=== PATIENT | female | born 1995 | race Two or more races ===

== ENCOUNTER 2024-08-03 02:19 | Inpatient (IN) | payer MEDICAID, OTHER ==
[~2024-08-03] VITALS: Ht 162.6 cm; Wt 70.5 kg
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
[2024-08-03] MEDS: SODIUM CHLORIDE 0.9% 1,000 ML IV ONE (02:53)
[2024-08-03] MEDS: ACETAMINOPHEN IV 1000 MG/100ML (10MG/ML) IV STA (02:53)
[2024-08-03] MEDS: ONDANSETRON HCL 4 MG/2 ML VIAL IV ONE (02:53)
[2024-08-03 02:59] VITALS: PULSE 98; RESP 22; O2SAT 97
[2024-08-03 03:05] LABS: Basophils # (auto) 0 10 ^3/uL (0-0.2); Eosinophils # (auto) 0 10 ^3/uL (0-0.8); Hemoglobin 14.1 g/dL (12.2-16.2); Monocytes # (auto) 0.8 10 ^3/uL (0-1.3); Nucleated Red Blood Cells % 0.1 %; White Blood Cell 10.7 10^3/uL (4.4-10.8)
[2024-08-03 03:06] LABS: Basophils % (auto) 0.4 % (0.0-2.0); Eosinophils % (auto) 0.3 % (0.0-7.0); Hematocrit 43.8 % (36.0-46.0); Lymphocytes # (auto) 2.7 10 ^3/uL (0.4-5.4); Lymphocytes % (auto) 24.9 % (10.0-50.0); Mean Corpuscular Hemoglobin 26.8 pg (28.0-32.0); Mean Corpuscular Hgb Conc. 32.2 g/dL (32.0-36.0); Mean Corpuscular Volume 83.3 fL (80.0-100.0); Neutrophils # (auto) 7.2 10 ^3/uL (1.6-8.6); Neutrophils % (auto) 67.4 % (37.0-80.0); Platelet Count (auto) 242 10^3/uL (140-450); Red Blood Cells 5.26 10^6/uL (4.0-5.20); Red Cell Distribution Width 14.2 % (11.8-14.3)
[2024-08-03] MEDS: IOHEXOL 300 MG/ML 100ML BOTTLE IJ ONE (03:19)
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
[2024-08-03 03:26] LABS: Chloride 107 mmol/L (98-107); Sodium 141 mmol/L (136-145)
[2024-08-03 03:27] LABS: Anion Gap 15 (5-15); Calcium 9.8 mg/dL (8.7-10.4)
[2024-08-03 03:32] LABS: BUN/Creatinine Ratio 12.1 (10.0-20.0); Blood Urea Nitrogen 12 mg/dL (9-23)
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
[2024-08-03 04:26] LABS: Carbon Dioxide 19 mmol/L (20-31); Glucose 121 mg/dL (74-106); Potassium 3.4 mmol/L (3.5-5.1)
[2024-08-03] MEDS ORDERED: DOCUSATE SOD 100 MG CAP PO PRN (06:30)
[2024-08-03] MEDS ORDERED: ONDANSETRON HCL 4 MG/2 ML VIAL IV PRN (06:30)
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
[2024-08-03] MEDS: SOD CHL 0.9%/ KCL 20MEQ 1,000 ML IV ONE (06:58)
[2024-08-03 07:06] LABS: Urine Bacteria None Seen /hpf (None Seen)
[2024-08-03 07:17] LABS: Urine Blood 1+ /uL (Negative); Urine Clarity Clear (Clear); Urine Color Light-Yellow (Yellow); Urine Protein, UAD Negative (Negative); Urine Specific Gravity 1.035 (1.001-1.035); Urine Squamous Epithelial Cell FEW /hpf (<5); Urine Urobilinogen Normal (Negative); Urine WBC 1 /HPF (0-5); Urine pH 5.5 (5.0-9.0)
[2024-08-03 07:32] LABS: Cannabinoid Screen, Urine Pos (NEGATIVE)
[2024-08-03 07:33] LABS: Amphetamine Screen, Urine Neg (NEGATIVE); Barbiturate Scree,Urine Neg (NEGATIVE); Benzodiazephine Screen, Urine Neg (NEGATIVE); Cocaine Screen, Urine Pos (NEGATIVE); Opiate Scree,Urine Neg (NEGATIVE); Phencyclidine Screen, Urine Neg (NEGATIVE)
[2024-08-03] MEDS: IBUPROFEN 600 MG TAB PO PRN (07:44)
[2024-08-03 08:00] VITALS: PULSE 86; RESP 24; O2SAT 100
[2024-08-03] MEDS: traMADol HCL 50 MG TAB PO PRN (16:22)
[2024-08-03 19:28] VITALS: PULSE 87; RESP 21; O2SAT 97
--- NOTE | 2024-08-04 03:43 | ECG ---
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
[2024-08-04 08:10] VITALS: PULSE 87; RESP 23; O2SAT 99
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
[2024-08-04] MEDS: amLODIPine BESYLATE 5 MG TAB PO ONE (11:45)
[2024-08-04] MEDS ORDERED: HYDR-4902 PO (12:03)
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
[2024-08-04 12:41] VITALS: BP 139/87; TEMP 36.8
[2024-08-04 13:00] VITALS: BP 127/82; PULSE 76; RESP 15; O2SAT 98
== END 2024-08-04 14:05 | disposition home or self-care (01) | DRG 135 ==
LOC: ER 02:19 → OVERFLOW 06:19
PROVIDERS: ADMIT Nurse Practitioner Acute Care; ATTEND Nurse Practitioner Acute Care
DX: S27.0XXA Traumatic pneumothorax, initial encounter (principal); S22.41XA Multiple fractures of ribs, right side, initial encounter for closed fracture; E87.6 Hypokalemia; V03.00XA Pedestrian on foot injured in collision with car, pick-up truck or van in nontraffic accident, initial encounter; V89.2XXA Person injured in unspecified motor-vehicle accident, traffic, initial encounter; Y92.89 Other specified places as the place of occurrence of the external cause; Y99.8 Other external cause status; Z88.0 Allergy status to penicillin
CPT/HCPCS: 36415; 70450; 71045; 71250; 71260; 73060; 73590; 73610; 74177; 80048; 80307; 81001; 84484; 85025; 93005; 96361; 96374; 96375; 99291; G0378; J0131; J2405

== ENCOUNTER 2024-12-29 00:35 | Emergency (ER) | payer SELFPAY ==
[~2024-12-29] VITALS: Ht 152.4 cm; Wt 75.0 kg
[~2024-12-29 00:35] MED LIST: HYDR-4902 PO
--- NOTE | 2024-12-29 01:22 | ED.PDOC ---
Eye-HPI HPI Comments PT COMING FROM HOME AFTER 1 WEEK OF PAIN TO HER THROAT THAT HAS NOT GONE DOWN SINCE SUNDAY LAST WEEK. PT BREATHING EVEN AND UNLABORED WITH NO SIGNS OF CARDIAC OR RESPIRATORY DISTRESS NOTED AT THIS TIME. DENIES PMH V/D/N Time Seen by MD: 01:18 Reviewed Notes: Nurses Notes, Medications, Allergies Allergies: Coded Allergies: Amoxicillin (Verified Allergy, Unknown, 08/03/24) Home Meds Active Scripts Ibuprofen (Ibuprofen) 800 Mg Tab, 800 MG PO Q8HP PRN for 5 Days, #15 TAB Prov:HAYDER BEARD MATERIAL DAMAGE ADJUSTER 12/29/24 Cefdinir (Cefdinir) 300 Mg Cap, 1 CAP PO BID for 7 Days, #14 CAP Prov:HAYDER BEARD MATERIAL DAMAGE ADJUSTER 12/29/24 Hydrocodone-Acetaminophen (Hydrocodone Bitartrate/AC 5-325 mg) 1 Tab Tab, 1 TAB PO Q6HP PRN for 7 Days, #20 TAB Prov:CHAKA ZAVALA MACHINE CLOTHING MAN 08/04/24 Information Source: Patient Past Medical History PAST MEDICAL HISTORY: Denies Surgical History: Denies all surgeries SHOWER MAID History: Denies all SHOWER MAID Hx Family History Family History: Reviewed,noncontributory to illness Social History Smoker: Non-Smoker Alcohol: Heavy Drugs: Cocaine Lives In: Home Constitutional: denies: chills, diaphoresis, fatigue, fever, malaise, sweats, weakness, others EENTM: reports: throat pain, throat swelling, voice changes; denies: blurred vision, double vision, ear bleeding, ear discharge, ear drainage, ear pain, ear ringing, eye pain, eye redness, hearing loss, mouth pain, mouth swelling, nasal discharge, nose bleeding, nose congestion, nose pain, photophobia, tearing, others Respiratory: denies: cough, hemoptysis, orthopnea, SOB at rest, shortness of breath, SOB with excertion, stridor, wheezing, others Cardiovascular: denies: chest pain, dizzy spells, diaphoresis, Dyspnea on exertion, edema, irregular heart beat, left arm pain, lightheadedness, palpitations, PND, syncope, others Gastrointestinal: denies: abdomen distended, abdominal pain, blood streaked bowels, constipated, diarrhea, dysphagia, difficulty swallowing, hematemesis, melena, nausea, poor appetite, poor fluid intake, rectal bleeding, rectal pain, vomiting, others Genitourinary: denies: abnormal vagina bleeding, burning, dyspareunia, dysuria, flank pain, frequency, hematuria, incontinence, pain, , vagina discharge, urgency, others Neurological: denies: dizziness, fainting, headache, left sided numbness, left sided weakness, numbness, paresthesia, pre-existing deficit, right sided numbness, right sided weakness, seizure, speech problems, tingling, tremors, weakness, others Musculoskeletal: denies: back pain, gout, joint pain, joint swelling, muscle pain, muscle stiffness, neck pain, others Integumetry: denies: bruises, change in color, change in hair/nails, dryness, laceration, lesions, lumps, rash, wounds, others Allergic/Immunocompromised: denies: Difficulty Healing, Frequent Infections, Hives, Itching, others Hematologic/Lymphatic: denies: anemia, blood clots, easy bleeding, easy bruising, swollen glands, others Endocrine: denies: excessive hunger, excessive sweating, excessive thirst, excessive urination, flushing, intolerance to cold, intolerance to heat, unexplained weight gain, unexplained weight loss, others Psychiatric: denies: anxiety, bipolar disorder, depression, hopeless, panic disorder, schizophrenia, sleepless, suicidal, others Physical Exam General Appearance: No Apparent Distress, Normal HEENT: Pharyngeal Erythema, TMs Normal, Tonsillar Exudate (Tonsils grade 4) Neck: Full Range of Motion Respiratory: Lungs Clear, No Respiratory Distress, Normal Breath Sounds Cardiovascular: No Murmur, Normal Peripheral Pulses, Regular Rate/Rhythm Breast Exam: Deferred Gastrointestinal: No Organomegaly, Non Tender, Soft Genitalia: Deferred Pelvic: Deferred Rectal: Deferred Extremities: Normal range of motion Musculoskeletal : Apperance: Normal Neurologic: Alert, No Motor Deficits, Normal Affect, Normal Mood, No Sensory Deficits Cerebellar Function: Normal Reflexes: NOT DONE Skin: Dry, Normal Color, Warm Lymphatic: No Adenopathy Was a procedure done? Was a procedure done?: No EENT DIFF Eye: N/A Sore Throat: Homer's Angina, Peritonsillar Abscess, Peritonsillar Cellulitis, Streptococcal, Viral Pharyngitis X-Ray, Labs, Meds, VS Vital Signs Date Time Temp Pulse Resp B/P (MAP) Pulse Ox O2 Delivery O2 Flow Rate FiO2 12/29/24 04:29 99.4 99.4 12/29/24 04:09 100.0 12/29/24 04:00 100.0 85 18 144/94 (111) 98 100.0 12/29/24 03:56 Room Air* 0 21 12/29/24 03:14 99.2 82 20 128/83 (98) 96 99.2 12/29/24 01:31 99.3 89 14 140/99 (113) 97 99.3 Lab Test 12/29/24 01:53 Range/Units White Blood Count 13.2 H 4.4-10.8 10^3/uL Red Blood Count 5.23 H 4.0-5.20 10^6/uL Hemoglobin 14.3 12.2-16.2 g/dL Hematocrit 42.3 36.0-46.0 % Mean Corpuscular Volume 80.9 80.0-100.0 fL Mean Corpuscular Hemoglobin 27.3 L 28.0-32.0 pg Mean Corpuscular Hemoglobin Concent 33.7 32.0-36.0 g/dL Red Cell Distribution Width 13.6 11.8-14.3 % Platelet Count 257 140-450 10^3/uL Mean Platelet Volume 9.1 6.9-10.8 fL Neutrophils (%) (Auto) 75.7 37.0-80.0 % Lymphocytes (%) (Auto) 14.4 10.0-50.0 % Monocytes (%) (Auto) 8.3 0.0-12.0 % Eosinophils (%) (Auto) 1.2 0.0-7.0 % Basophils (%) (Auto) 0.4 0.0-2.0 % Neutrophils # (Auto) 10.0 H 1.6-8.6 10 ^3/uL Lymphocytes # (Auto) 1.9 0.4-5.4 10 ^3/uL Monocytes # (Auto) 1.1 0-1.3 10 ^3/uL Eosinophils # (Auto) 0.2 0-0.8 10 ^3/uL Basophils # (Auto) 0.1 0-0.2 10 ^3/uL Nucleated Red Blood Cells 0.0 % Sodium Level 140 136-145 mmol/L Potassium Level 3.5 3.5-5.1 mmol/L Chloride Level 106 98-107 mmol/L Carbon Dioxide Level 23 20-31 mmol/L Anion Gap 11 5-15 Blood Urea Nitrogen 9 9-23 mg/dL Creatinine 1.04 H 0.550-1.02 mg/dL Glomerular Filtration Rate Calc 75 >90 mL/min BUN/Creatinine Ratio 8.7 L 10.0-20.0 Serum Glucose 92 74-106 mg/dL Calcium Level 9.6 8.7-10.4 mg/dL Total Bilirubin 0.4 0.2-1.0 mg/dL Aspartate Amino Transferase (AST) 14 13-40 U/L Alanine Aminotransferase (ALT) 9 7-40 U/L Alkaline Phosphatase 70 46-116 U/L Total Protein 7.6 5.7-8.2 g/dL Albumin 4.7 3.2-4.8 g/dL Current Medications Medications (Trade) Dose Ordered Sig/Hans Route Start Time Stop Time Status Last Admin Ceftriaxone Sodium 50 ml @ 100 mls/hr ONCE ONCE IV 12/29/24 01:30 12/29/24 01:59 DC 12/29/24 03:50 Ketorolac Tromethamine (Toradol Injection) 30 mg ONCE ONCE IV 12/29/24 01:30 12/29/24 01:31 DC 12/29/24 03:45 Dexamethasone Sodium Phosphate (Decadron Injection) 10 mg ONCE ONCE IV 12/29/24 01:30 12/29/24 01:31 DC 12/29/24 03:44 Acetaminophen (Tylenol Tablet) 650 mg ONCE ONCE PO 12/29/24 04:15 12/29/24 04:16 DC 12/29/24 04:09 X-Ray, Labs, Meds, VS Comment IMPRESSION: 1. Ill-defined increased soft tissue density of slightly diminished attenuation within the right peritonsillar region exhibiting mild mass effect on the corresponding airway. Lack of intravenous contrast limits evaluation. This may represent an early organizing phlegmonous collection versus abscess. 2. Bilateral cervical lymphadenopathy. CT shows early organizing phlegmonous collection versus abscess. Patient given Rocephin 1 g IM, Toradol 30 mg IV and Decadron 10 mg IV.. Patient reports improvement in symptoms requesting to be discharge at this time. Script trial of cefdinir and ibuprofen advised to take medications as prescribed side effects discussed. Follow up with her PCP in two days or sooner discussed ER return precautions patient indicated understanding and agrees with discharge plan of care. Time of 1ST Reevaluation: 01:22 Reevaluation 1ST: Unchanged Time of 2ND Reevaluation: 03:40 Reevaluation 2ND: Unchanged Time of 3RD Reevaluation: 04:29 Reevaluation 3RD: Improved Patient Education/Counseling: Diagnosis, Treatment, Prognosis, Need For Follow Up Family Education/Counseling: No Family Present SEPSIS Sepsis Screen Physician Orders Neck Without Contrast (12/29/24 01:22) Vital Signs Date Time Temp Pulse Resp B/P (MAP) Pulse Ox O2 Delivery O2 Flow Rate FiO2 12/29/24 04:29 99.4 99.4 12/29/24 04:09 100.0 12/29/24 04:00 100.0 85 18 144/94 (111) 98 100.0 12/29/24 03:56 Room Air* 0 21 12/29/24 03:14 99.2 82 20 128/83 (98) 96 99.2 12/29/24 01:31 99.3 89 14 140/99 (113) 97 99.3 Laboratory Tests Test 12/29/24 01:53 White Blood Count 13.2 10^3/uL (4.4-10.8) H Medications Medications Dose Ordered Sig/Hans Route Start Time Stop Time Status Last Admin Dose Admin Acetaminophen 650 mg ONCE ONCE PO 12/29/24 04:15 12/29/24 04:16 DC 12/29/24 04:09 Ceftriaxone Sodium 50 ml @ 100 mls/hr ONCE ONCE IV 12/29/24 01:30 12/29/24 01:59 DC 12/29/24 03:50 Dexamethasone Sodium Phosphate 10 mg ONCE ONCE IV 12/29/24 01:30 12/29/24 01:31 DC 12/29/24 03:44 Ketorolac Tromethamine 30 mg ONCE ONCE IV 12/29/24 01:30 12/29/24 01:31 DC 12/29/24 03:45 Departure 1 Departure Time of Disposition: 04:28 Impression: Primary Impression: Acute tonsillitis Qualified Codes: J03.90 - Acute tonsillitis, unspecified Disposition: 01 HOME / SELF CARE / HOMELESS Condition: Stable e-Prescriptions Ibuprofen (Ibuprofen) 800 Mg Tab 800 MG PO Q8HP PRN for 5 Days, #15 TAB Prov: HAYDER BEARD 12/29/24 Cefdinir (Cefdinir) 300 Mg Cap 1 CAP PO BID for 7 Days, #14 CAP Prov: HAYDER BEARD 12/29/24 Discharged With: Self Critical Care Note Critical Care Time?: No Stability Stability form required: HAYDER Monroe Dec 29, 2024 01:22
[2024-12-29 02:05] LABS: Hematocrit 42.3 % (36.0-46.0); Hemoglobin 14.3 g/dL (12.2-16.2); Mean Corpuscular Hemoglobin 27.3 pg (28.0-32.0); Mean Corpuscular Volume 80.9 fL (80.0-100.0); Nucleated Red Blood Cells % 0.0 %
--- NOTE | 2024-12-29 02:06 | DVH ---
EXAM: CT NECK WITHOUT CONTRAST INDICATION: Rule out right side peritonsillar abscess Exam Date: 12/29/2024 01:26 AM COMPARISON: None TECHNIQUE: CT of the neck without intravenous contrast. RADIATION DOSE: CTDIvol: 20.0 mGy, DLP: 677.02 mGy*cm FINDINGS: 2.7 x 2.1 cm ill-defined slightly hypoattenuating soft tissue prominence within the right peritonsill ar region exhibiting mild mass effect on the corresponding airway. There is otherwise no evidence of cervical mass lesion, pathologically enlarged lymph nodes or defini te fluid collection. Multiple prominent mildly enlarged bilateral cervical level II and III lymph nodes. The fat planes of the neck appear intact. The airway and larynx are unremarkable. The parotid, submandibular and thyroid glands are unremarkable. The vascular structures of the neck appear patent. The visualized lung apices are clear. The limited visualized portions of the brain are unremarkable. The osseous structures are unremarkable. IMPRESSION: 1. Ill-defined increased soft tissue density of slightly diminished attenuation within the right opal tonsillar region exhibiting mild mass effect on the corresponding airway. Lack of intravenous contras t limits evaluation. This may represent an early organizing phlegmonous collection versus abscess. 2. Bilateral cervical lymphadenopathy.
[2024-12-29 02:25] LABS: Albumin 4.7 g/dL (3.2-4.8); Alkaline Phosphatase 70 U/L (46-116); Anion Gap 11 (5-15); BUN/Creatinine Ratio 8.7 (10.0-20.0); Bilirubin, Total 0.4 mg/dL (0.2-1.0); Calcium 9.6 mg/dL (8.7-10.4); Carbon Dioxide 23 mmol/L (20-31); Chloride 106 mmol/L (98-107); Glucose 92 mg/dL (74-106); Potassium 3.5 mmol/L (3.5-5.1); Sodium 140 mmol/L (136-145); Total Protein 7.6 g/dL (5.7-8.2)
[2024-12-29 02:26] LABS: Alanine Aminotransferase 9 U/L (7-40); Blood Urea Nitrogen 9 mg/dL (9-23)
[2024-12-29] MEDS: KETOROLAC TROMETH 30 MG/ML 1ML VIAL IV ONE (03:45)
[2024-12-29] MEDS: cefTRIAXone 1GM/50ML D5W 50 ML IV ONE (03:50)
[2024-12-29 04:00] VITALS: BP 144/94; PULSE 85; RESP 18; O2SAT 98
[2024-12-29] MEDS: ACETAMINOPHEN 325 MG TAB PO ONE (04:09)
[2024-12-29 04:29] VITALS: TEMP 99.4
[2024-12-29] MEDS ORDERED: IBUP-1456 PO (04:29)
[2024-12-29] MEDS ORDERED: CEFD300C2 PO (04:29)
== END 2024-12-29 04:36 | disposition home or self-care (01) ==
LOC: ER 00:35
DX: J03.90 Acute tonsillitis, unspecified (principal); F14.90 Cocaine use, unspecified, uncomplicated; F10.10 Alcohol abuse, uncomplicated; Z88.0 Allergy status to penicillin; Z79.899 Other long term (current) drug therapy; Y90.9 Presence of alcohol in blood, level not specified
CPT/HCPCS: 36415; 70490; 80053; 85025; 96365; 96375; 99285; J0696; J1100; J1885

== ENCOUNTER 2025-02-05 19:22 | Emergency (ER) | payer SELFPAY ==
[~2025-02-05] VITALS: Ht 162.6 cm; Wt 78.1 kg
[2025-02-05 19:25] VITALS: BP 143/91; PULSE 71; RESP 18; TEMP 97.2; O2SAT 97
[2025-02-05] MEDS ORDERED: ONDANSETRON ODT 4 MG TAB PO ONE (19:45)
[2025-02-05] MEDS ORDERED: MECLIZINE HCL 25 MG TAB PO ONE (19:45)
[2025-02-05 20:07] LABS: Hematocrit 40.8 % (36.0-46.0); Hemoglobin 14.0 g/dL (12.2-16.2); Mean Corpuscular Hemoglobin 27.7 pg (28.0-32.0); Mean Corpuscular Volume 80.8 fL (80.0-100.0); Nucleated Red Blood Cells % 0.0 %
--- NOTE | 2025-02-05 20:16 | ED.PDOC ---
History of Present Illness HPI Comments Why 29-year-old female came to ER for dizziness. Patient has history of substance abuse. States for the past two days, has been having episodes of dizziness, nausea, and felt like passing out. Patient is unsure if she is or not. Chief Complaint: Dizziness Time Seen by MD: 20:15 Reviewed Notes: Nurses Notes Allergies: Coded Allergies: Amoxicillin (Verified Allergy, Unknown, 08/03/24) Home Meds Active Scripts Meclizine HCl (Meclizine) 25 Mg Chw, 25 MG PO Q6HP PRN, #30 CHW Prov:RUDOLPH JIMENEZ MD 02/05/25 Ondansetron HCl (Ondansetron Hydrochloride) 8 Mg Tab, 8 MG PO Q6HP PRN, #30 TAB Prov:RUDOLPH JIMENEZ MD 02/05/25 Hydrocodone-Acetaminophen (Hydrocodone Bitartrate/AC 5-325 mg) 1 Tab Tab, 1 TAB PO Q6HP PRN for 7 Days, #20 TAB Prov:CHAKA ZAVALA NP 08/04/24 Information Source: Patient Mode of Arrival: Ambulatory Severity: Moderate Timing: Hours Duration: Since onset Prehospital treatment: None Past Medical History PAST MEDICAL HISTORY: Denies Surgical History: Denies all surgeries 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 PROGRAM SPECIALIST History: Denies all HEALTH PROGRAM SPECIALIST Hx Family History Family History: Reviewed,noncontributory to illness Social History Smoker: Non-Smoker Alcohol: Occasionally Drugs: Cocaine Lives In: Home Constitutional: denies: chills, diaphoresis, fatigue, fever, malaise, sweats, weakness, others EENTM: denies: blurred vision, double vision, ear bleeding, ear discharge, ear drainage, ear pain, ear ringing, eye pain, eye redness, hearing loss, mouth pain, mouth swelling, nasal discharge, nose bleeding, nose congestion, nose pain, photophobia, tearing, throat pain, throat swelling, voice changes, others Respiratory: denies: cough, hemoptysis, orthopnea, SOB at rest, shortness of breath, SOB with excertion, stridor, wheezing, others Cardiovascular: denies: chest pain, dizzy spells, diaphoresis, Dyspnea on exertion, edema, irregular heart beat, left arm pain, lightheadedness, palpitations, PND, syncope, others Gastrointestinal: reports: nausea; denies: abdomen distended, abdominal pain, blood streaked bowels, constipated, diarrhea, dysphagia, difficulty swallowing, hematemesis, melena, poor appetite, poor fluid intake, rectal bleeding, rectal pain, vomiting, others Genitourinary: denies: abnormal vagina bleeding, burning, dyspareunia, dysuria, flank pain, frequency, hematuria, incontinence, pain, , vagina discharge, urgency, others Neurological: reports: dizziness, fainting; denies: headache, left sided numbness, left sided weakness, numbness, paresthesia, pre-existing deficit, right sided numbness, right sided weakness, seizure, speech problems, tingling, tremors, weakness, others Musculoskeletal: denies: back pain, gout, joint pain, joint swelling, muscle pain, muscle stiffness, neck pain, others Integumetry: denies: bruises, change in color, change in hair/nails, dryness, laceration, lesions, lumps, rash, wounds, others Allergic/Immunocompromised: denies: Difficulty Healing, Frequent Infections, Hives, Itching, others Hematologic/Lymphatic: denies: anemia, blood clots, easy bleeding, easy bruising, swollen glands, others Endocrine: denies: excessive hunger, excessive sweating, excessive thirst, excessive urination, flushing, intolerance to cold, intolerance to heat, unexplained weight gain, unexplained weight loss, others Psychiatric: denies: anxiety, bipolar disorder, depression, hopeless, panic disorder, schizophrenia, sleepless, suicidal, others Physical Exam General Appearance: No Apparent Distress, Normal HEENT: Normal ENT Inspection, Pharynx Normal, TMs Normal Neck: Full Range of Motion, Non-Tender, Normal, Normal Inspection Respiratory: Chest Non-Tender, Lungs Clear, No Accessory Muscle Use, No Respiratory Distress, Normal Breath Sounds Cardiovascular: No Edema, No JVD, No Murmur, No Gallop, Normal Peripheral Pulses, Regular Rate/Rhythm Breast Exam: Deferred Gastrointestinal: No Organomegaly, Non Tender, No Pulsatile Mass, Normal Bowel Sounds, Soft Genitalia: Deferred Pelvic: Deferred Rectal: Deferred Extremities: No calf tenderness, Normal capillary refill, Normal inspection, Normal range of motion, Non-tender, No pedal edema Musculoskeletal : Apperance: Normal Neurologic: 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 Was a procedure done?: No Differential Dx Considerations may include: Anemia, electrolyte imbalance, dehydration, X-Ray, Labs, Meds, VS Vital Signs Date Time Temp Pulse Resp B/P (MAP) Pulse Ox O2 Delivery O2 Flow Rate FiO2 02/05/25 19:25 97.2 71 18 143/91 97 97.2 Lab Test 02/05/25 19:50 Range/Units White Blood Count 7.5 4.4-10.8 10^3/uL Red Blood Count 5.04 4.0-5.20 10^6/uL Hemoglobin 14.0 12.2-16.2 g/dL Hematocrit 40.8 36.0-46.0 % Mean Corpuscular Volume 80.8 80.0-100.0 fL Mean Corpuscular Hemoglobin 27.7 L 28.0-32.0 pg Mean Corpuscular Hemoglobin Concent 34.2 32.0-36.0 g/dL Red Cell Distribution Width 15.0 H 11.8-14.3 % Platelet Count 245 140-450 10^3/uL Mean Platelet Volume 9.5 6.9-10.8 fL Neutrophils (%) (Auto) 62.0 37.0-80.0 % Lymphocytes (%) (Auto) 26.2 10.0-50.0 % Monocytes (%) (Auto) 9.3 0.0-12.0 % Eosinophils (%) (Auto) 1.9 0.0-7.0 % Basophils (%) (Auto) 0.6 0.0-2.0 % Neutrophils # (Auto) 4.7 1.6-8.6 10 ^3/uL Lymphocytes # (Auto) 2.0 0.4-5.4 10 ^3/uL Monocytes # (Auto) 0.7 0-1.3 10 ^3/uL Eosinophils # (Auto) 0.1 0-0.8 10 ^3/uL Basophils # (Auto) 0 0-0.2 10 ^3/uL Nucleated Red Blood Cells 0.0 % Sodium Level 139 136-145 mmol/L Potassium Level 4.1 3.5-5.1 mmol/L Chloride Level 105 98-107 mmol/L Carbon Dioxide Level 28 20-31 mmol/L Anion Gap 6 5-15 Blood Urea Nitrogen 12 9-23 mg/dL Creatinine 1.00 0.550-1.02 mg/dL Glomerular Filtration Rate Calc 79 >90 mL/min BUN/Creatinine Ratio 12.0 10.0-20.0 Serum Glucose 117 H 74-106 mg/dL Calcium Level 9.2 8.7-10.4 mg/dL Magnesium Level 2.0 1.6-2.6 mg/dL Total Bilirubin 0.6 0.2-1.0 mg/dL Aspartate Amino Transferase (AST) 18 13-40 U/L Alanine Aminotransferase (ALT) 14 7-40 U/L Alkaline Phosphatase 83 46-116 U/L Troponin I High Sensitivity < 3 L </=34 ng/L Total Protein 7.2 5.7-8.2 g/dL Albumin 4.3 3.2-4.8 g/dL Beta HCG, Quantitative 0.3 L 1.5-4.2 mIU/mL Time of 1ST Reevaluation: 20:12 Reevaluation 1ST: Unchanged Patient Education/Counseling: Diagnosis, Treatment Family Education/Counseling: No Family Present SEPSIS Sepsis Screen Date sepsis recognized/suspect: Feb 05, 2025 Time Sepsis recognized/suspect: 1924 Recent Procedure: No On Antibiotic Therapy: No Respiratory Rate >20: No Heart Rate >90: No Temp<36 C (96.8 F) or >38.3 C: No SBP <90 or MAP <65 mmHG: No New Acute Mental Status Change: No Is the patient on CPAP, BIPAP,: No Physician Orders Electrocardigram (02/05/25 19:41) Urinalysis (02/05/25 19:41) Test, Urine (02/05/25 19:41) Vital Signs Date Time Temp Pulse Resp B/P (MAP) Pulse Ox O2 Delivery O2 Flow Rate FiO2 02/05/25 19:25 97.2 71 18 143/91 97 97.2 Laboratory Tests Test 02/05/25 19:50 White Blood Count 7.5 10^3/uL (4.4-10.8) Departure 1 Departure Time of Disposition: 22:00 Impression: Primary Impression: Dizziness Additional Impression: Nausea Disposition: HOME / SELF CARE / HOMELESS Condition: Stable e-Prescriptions Meclizine HCl (Meclizine) 25 Mg Chw 25 MG PO Q6HP PRN, #30 CHW Prov: RUDOLPH JIMENEZ MD 02/05/25 Ondansetron HCl (Ondansetron Hydrochloride) 8 Mg Tab 8 MG PO Q6HP PRN, #30 TAB Prov: RUDOLPH JIMENEZ MD 02/05/25 Discharged With: Self Critical Care Note Critical Care Time?: No Stability Stability form required: No Heart Score Heart Score: Heart Score Response (Comments) Value History N/A 0 EKG N/A 0 Age N/A 0 Risk Factors N/A 0 Troponin N/A 0 Total 0 I personally scribed for RUDOLPH JIMENEZ MD ([email or web address]) on 02/05/25 at 20:15. Electronically submitted by Zeb Siddiqui ([facility]). RUDOLPH JIMENEZ MD Feb 05, 2025 20:15
[2025-02-05 20:18] LABS: Alanine Aminotransferase 14 U/L (7-40); Albumin 4.3 g/dL (3.2-4.8); Alkaline Phosphatase 83 U/L (46-116); Anion Gap 6 (5-15); BUN/Creatinine Ratio 12.0 (10.0-20.0); Blood Urea Nitrogen 12 mg/dL (9-23); Calcium 9.2 mg/dL (8.7-10.4); Carbon Dioxide 28 mmol/L (20-31); Chloride 105 mmol/L (98-107); Magnesium 2.0 mg/dL (1.6-2.6); Potassium 4.1 mmol/L (3.5-5.1); Sodium 139 mmol/L (136-145); Total Protein 7.2 g/dL (5.7-8.2)
[2025-02-05 20:19] LABS: Bilirubin, Total 0.6 mg/dL (0.2-1.0)
[2025-02-05 20:21] LABS: Glucose 117 mg/dL (74-106)
[2025-02-05] MEDS ORDERED: MECL25CH38 PO (23:15)
[2025-02-05] MEDS ORDERED: ONDA-180 PO (23:15)
== END 2025-02-06 00:56 | disposition home or self-care (01) ==
LOC: ER 19:22
DX: R42 Dizziness and giddiness (principal); R11.0 Nausea; R55 Syncope and collapse; Z88.0 Allergy status to penicillin
CPT/HCPCS: 36415; 80053; 83735; 84484; 84702; 85025

== ENCOUNTER 2025-02-28 12:32 | Emergency (ER) | payer MEDICAID, OTHER ==
[~2025-02-28] VITALS: Ht 162.6 cm; Wt 74.7 kg
[~2025-02-28 12:32] MED LIST changes: +MECL25CH38 PO; +ONDA-180 PO
[2025-02-28 12:44] VITALS: BP 119/73; PULSE 101; RESP 16; TEMP 98.8; O2SAT 99
== END 2025-02-28 16:49 | disposition left against medical advice (07) ==
LOC: ER 12:32
DX: R07.0 Pain in throat (principal); Z53.21 Procedure and treatment not carried out due to patient leaving prior to being seen by health care provider